=== PATIENT | female | born 1945 | race Caucasian/White ===

== ENCOUNTER → 2016-09-30 | Outpatient (CLI) | payer MEDICARE, OTHER ==
[~2016-09-30] MED LIST: ACET-789 PO; AMOX875T2 PO; AZIT250T5 PO; AZIT250T81 PO; CYCL-265 PO; SPIR25TA PO; TSSN473B PO
[2016-09-30 10:48] VITALS: BP 144/73
--- NOTE | 2016-09-30 10:48 | Urgent Care T Sheet Gen (E) ---
Intake General Temperature (Fahrenheit): 98.3 Pulse: 61 Blood Pressure Systolic: 144 Blood Pressure Diastolic: 73 Respirations: 20 SPO2: 96 Chief Complaint: UC Ear/Nose/Throat Complaint Description of Symptoms Complains of cough and sinus pressure with runny nose and eyes x over 4 days. She has reported a bad cough. She is blowing thick yellow-green mucous from her nose. no high fevers, reports headache from sinus pressure- was around her Grandson over [facility] who was sick Source: Patient History of Present Illness Onset & Duration: Days Timing: Still present Severity: Mild Associated Symptoms: Cough, Nasal congestion, Sinus congestion Recent Trauma: No Allergies: Coded Allergies: No Known Drug Allergies (Unverified , 06/06/12) Home Meds Active Scripts Azithromycin (Zithromax Z-Law)6 Tab/Pkt [id number] Mg PO SEE INSTRUCTIONS #6 TAB Ref 0 Day One: Take 2 tablets by mouth Days Two-Five: Take 1 tablet by mouth Prov:DARIA JONES 03/11/16 Reported Medications Spironolactone (Aldactone)25 Mg [id number] Mg PO daily 06/06/12 Respiratory Constitutional Symptoms: No Fever EENTM: Eye tearing Nose Congestion Throat pain Other (sinus congetion and headaches) Respiratory: Cough Cardiovascular: No symptoms reported Gastrointestinal/Abdominal: No symptoms reported Genitourinary: No symptoms reported All Other Systems Reviewed Remaining Systems: All other systems reviewed with negative findings Past Wfggacx-Nwbacf-Ratilu Hx Patient's Social History Alcohol Use: Denies Use Recreational Drug Use: Denies Use Surgeries/Hospitalizations Hospitalization/Surgery Hx: htn, depression, knee surgery, foot surgery Respiratory Respiratory History: None Cardiovascular Cardiovascular History: Hypertension Neuro/Muscular Neuro/Muscular History: Visual impairment, None Reproductive System Sexually Transmitted Diseases: No Genitouinary Genitourinary History: None Gastrointestinal GI/Endocrine History: Change in bowel habits, None Comment: BORDERLINE DIABETIC HEENT Impaired Vision: Glasses Hearing Impaired: None Integumentary Integumentary History: None Cancer History of Cancer?: No Psychosocial Behavior Disorders: Depression Physical Exam Physical Exam General Appearance: WD/WN No apparent distress Eyes, Ears, Nose, Throat Ex: PERRL/EOMI TM abnormal (R) (dull with fluid present) TM abnormal (L) (dull with fluid present) Pharyngeal erythema Other ( drainage seen posterior pharynx- nose with yellow-green exudate) Neck Exam: Full range of motion Supple Normal inspectionNo Lymphadenopathy Respiratory Exam: Lungs clear Normal breath sounds No respiratory distress No accessory muscles usedNo Accessory muscle use, No Wheezes Cardiovascular Exam: Regular rate, rhythm No murmur Skin Exam: Normal color Warm/dry/intact No rashes Neurologic/Psychiatric Exam: Oriented times 4 CN's II-X nml Departure Urgent Care Impression Chief Complaint: Ear/Nose/Throat Complaint Impression: Primary Impression: Sinusitis Qualified Code: J01.10 - Acute frontal sinusitis, unspecified Departure Disposition: HOME OR SELF-CARE Condition: Stable Referrals: FRANCISCO MCKOY MD (PCP) Additional Instructions: Long talk with Her rest hydrate Tylenol for pain or fever may use OTC claritin 10 mg po daily Change tooth brush in 48 hours f/u PCP as needed she agrees to plan of care. Scripts Amoxicillin 875 Mg [id number] Mg PO BID #20 TAB Ref 0 Prov:LUCY CAPONE APRN () 09/30/16 End of report . LUCY CAPONE APRN () Sep 30, 2016 10:48
== END ==
LOC: MHUC 10:36
PROVIDERS: ATTEND Nurse Practitioner
DX: J01.10 Acute frontal sinusitis, unspecified (principal)
CPT/HCPCS: 99213